=== PATIENT | male | born 1975 | race American Indian/Alaskan Native ===

== ENCOUNTER 2018-05-29 17:18 | Emergency (ER) | payer BC ==
[2018-05-29] MEDS ORDERED: Ketorolac 60 MG/2 ML SDV IM ONE (17:47)
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
--- NOTE | 2018-05-29 18:43 | CR ---
Indication: Pain. Technique: Two views of the right ankle were obtained. Comparison: None Findings: Irregularity of the distal fibula is identified, most likely chronic. The ankle mortise is intact. The talar dome is intact. Mild soft tissue swelling is identified laterally. No acute fracture or subluxation is identified. Impression: No acute fracture. Dictated by Rula Chong MD @ May 29 2018 6:40PM Signed by Dr. Rula Chong @ May 29 2018 6:41PM
== END 2018-05-29 19:00 | disposition home or self-care (01) ==
LOC: MW.ED 17:18
DX: S93.401A Sprain of unspecified ligament of right ankle, initial encounter (principal); F41.9 Anxiety disorder, unspecified; F32.9 Major depressive disorder, single episode, unspecified; E11.9 Type 2 diabetes mellitus without complications; Z87.891 Personal history of nicotine dependence; W10.9XXA Fall (on) (from) unspecified stairs and steps, initial encounter; Z88.5 Allergy status to narcotic agent
CPT/HCPCS: 73610; 96372; 99283; J1885

== ENCOUNTER 2018-09-10 07:06 | Emergency (ER) | payer BC ==
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
[2018-09-10] MEDS ORDERED: cefTRIAXone 1 GM Vial IM ONE (07:24)
[2018-09-10] MEDS ORDERED: Diphtheria,Pertussis(Acell),Tetanus Vaccine 0.5 ML Syringe IM ONE (07:24)
[2018-09-10] MEDS ORDERED: Lidocaine 1% 2 ML ONE (07:57)
--- NOTE | 2018-09-10 08:18 | CR ---
INDICATION: Rt knee pain x 3 days, pt fell. COMPARISON: 12/22/2013. FINDINGS: Three views of the right knee demonstrate normal mineralization and alignment. No acute fracture or dislocation. Large osseous spur along the medial femoral condyle consistent with prior MCL injury, unchanged from prior. Joint spaces are preserved. Mild osteophyte formation of the patellofemoral compartment. No significant joint effusion. IMPRESSION: No acute osseous abnormality. Dictated by Roshan Maier MD @ 09/10/2018 8:16:18 AM Dictated by: Roshan Maier MD @ 09/10/2018 08:16:27 (Electronically Signed)
[2018-09-10] MEDS ORDERED: Bacitracin Oint 1 GM U/D Packet TOP ONE (08:29)
== END 2018-09-10 08:44 | disposition home or self-care (01) ==
LOC: MW.ED 07:06
DX: S01.552A Open bite of oral cavity, initial encounter (principal); S80.211A Abrasion, right knee, initial encounter; E11.9 Type 2 diabetes mellitus without complications; Z23 Encounter for immunization; Z88.5 Allergy status to narcotic agent; W19.XXXA Unspecified fall, initial encounter
CPT/HCPCS: 73562; 90471; 90715; 96372; 99283; J0696; J2001

== ENCOUNTER 2020-10-18 10:24 | Emergency (ER) | payer BC, OTHER ==
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
[2020-10-18 11:15] LABS: BLOOD UREA NITROGEN,BUN 11 mg/dL (7.0-18.0); CARBON DIOXIDE,CO2 26.4 mmol/L (21.0-32.0); CHLORIDE,CL 100 mmol/L (98-107); GLUCOSE RANDOM 379 mg/dL (74-106); POTASSIUM,K 4.6 mmol/L (3.5-5.1); SODIUM,NA 135 mmol/L (136-148)
--- NOTE | 2020-10-18 12:09 | CR ---
Indication: Chest pain and intermittent dyspnea Technique: Portable AP chest radiograph Comparison: None available Findings: Normal heart and mediastinum. Lungs and pleural spaces clear. No acute or aggressive osseous abnormality. Impression: No acute findings in the chest. Dictated by Checo Ortega MD @ 10/18/2020 12:08:[address] Checo Ortega @ Oct 18 2020 12:08PM
== END 2020-10-18 12:37 | disposition home or self-care (01) ==
LOC: MW.ED 10:24
DX: J06.9 Acute upper respiratory infection, unspecified (principal); E11.9 Type 2 diabetes mellitus without complications
CPT/HCPCS: 36415; 71045; 71045-26; 80053; 82550; 83735; 84100; 84484; 85025; 93005; 99284-25

== ENCOUNTER 2021-02-20 16:59 | Emergency (ER) | payer OTHER ==
[2021-02-20 18:26] LABS: CORONAVIRUS COVID-19 NAA POSITIVE (NEGATIVE); INFLUENZA A NAA NEGATIVE (NEGATIVE); INFLUENZA B NAA NEGATIVE (NEGATIVE)
--- NOTE | 2021-02-20 19:45 | EDM.PDOC ---
ED HPI GENERAL MEDICAL PROBLEM - General Chief Complaint: Respiratory Problem Stated Complaint: COVID POS, COVID SYMPTOMS Time Seen by Provider: 02/20/21 19:13 - History of Present Illness INITIAL COMMENTS - FREE TEXT/NARRATIVE: HISTORY AND PHYSICAL: History of present illness: Is a 45-year-old gentleman with history significant for diabetes who presents ER today secondary to a positive Covid test at home along with generalized malaise, body aches and start developing some shortness of breath. Patient denies any recent vomiting or diarrhea. Patient reports even tolerate p.o. solids and liquids well. Patient has a chest pain or abdominal pain. Patient reports occasional cough. Patient denies any loss of taste. Patient denies any recent fevers. Patient has a history of hypertension, liver, lung, kidney problems. Patient has any tobacco, alcohol, drugs. Patient reports he has allergies to morphine. Review of systems: As per history of present illness and below otherwise all systems reviewed and negative. Past medical history: As per history of present illness and as reviewed below otherwise noncontributory. Surgical history: As per history of present illness and as reviewed below otherwise noncontr ibutory. Social history: No reported history of drug abuse. Family history: As per history of present illness and as reviewed below otherwise noncontributory. Physical exam: HEENT: Atraumatic, normocephalic, pupils reactive, negative for conjunctival pallor or scleral icterus, mucous membranes moist, throat clear, neck supple, nontender, trachea midline. Lungs: Clear to auscultation, breath sounds equal bilaterally, chest nontender. Heart: S1S2, regular, negative for clicks, rubs, or JVD. Abdomen: Soft, nondistended, nontender. Negative for masses or hepatosplenomegaly. Negative for costovertebral tenderness. Pelvis: Stable nontender. Genitourinary: Deferred. Rectal: Deferred. Extremities: Atraumatic, negative for cords or calf pain. Neurovascular unremarkable. Neuro: Awake, alert, oriented. Cranial nerves II through XII unremarkable. Cerebellum unremarkable. Motor and sensory unremarkable throughout. Exam nonfocal. Diagnostics: Covid test positive Therapeutics: I had a detailed discussion with the patient regarding the capability of the infusion center to provided monoclonal antibodies treatment against COVID-19. The potential benefits of this intervention as well as the potential risks and side effects were discussed at length. Questions were sought and answered, and the patient was given handout to review additional information. In addition, a link to the informational website has been provided. I have encouraged the patient to search for additional information about this intervention by reading information at various internet resources. Patient is aware that they are free to change their mind at any time regarding this treatment. At this time, the patient does not want their information to be sent to the infusion center. Assessment and plan: 45-year-old gentleman who presents ER today after being testing positive at home for Covid. Patient's pulse ox is 98% on room air. Patient's lungs are clear. Patient appears to be no acute distress. Patient has been given the opportunity to obtain Regeneron however at this time he is declining it. He has been encouraged to return the ED if he should change his mind or to call his primary care physician to set up Regeneron therapy for him. I have discussed with him risks of Covid and the need to return to the ED if they should have increased chest pain or shortness of breath. They should also return the ED if they develop any new or concerning symptoms. Definitive disposition and diagnosis as appropriate pending reevaluation and review of above. Generalized body aches Pain Score (Numeric/FACES): 4 - Related Data Allergies Allergy/AdvReac Type Severity Reaction Status Date / Time morphine Allergy Itching Verified 02/20/21 17:40 Home Meds: Home Meds Empagliflozin [Jardiance] 02/20/21 [History] Semaglutide [Ozempic] 02/20/21 [History] Past Medical History HEENT History: Reports: None Cardiovascular History: Reports: None Respiratory History: Reports: None Gastrointestinal History: Reports: None Genitourinary History: Reports: None Musculoskeletal History: Reports: Fracture Psychiatric History: Reports: Anxiety, Depression Endocrine/Metabolic History: Reports: Diabetes, Type II Hematologic History: Reports: None Oncologic (Cancer) History: Reports: None - Infectious Disease History Infectious Disease History: Reports: Chicken Pox - Past Surgical History HEENT Surgical History: Reports: None Musculoskeletal Surgical History: Reports: Other (See Below) Other Musculoskeletal Surgeries/Procedures:: crushed by front end melter loader 13 years ago- pelvis sx Dermatological Surgical History: Reports: Skin Graft Social & Family History - Family History Family Medical History: No Pertinent Family History - Caffeine Use Caffeine Use: Reports: Coffee, Energy Drinks - Recreational Drug Use Recreational Drug Use: No ED ROS GENERAL - Review of Systems Review Of Systems: See Below ED EXAM, GENERAL - Physical Exam Exam: See Below Course - Vital Signs Last Recorded V/S: Last Vital Signs Temp 99 F 02/20/21 17:41 Pulse 91 02/20/21 17:41 Resp 18 02/20/21 17:41 BP 121/74 02/20/21 17:41 Pulse Ox 97 02/20/21 17:41 - Orders/Labs/Meds Labs: Laboratory Tests 02/20/21 Range/Units 17:38 Influenza Type A RNA NEGATIVE (NEGATIVE) Influenza Type B RNA NEGATIVE (NEGATIVE) SARS-CoV-2 RNA (RAAD) POSITIVE H (NEGATIVE) Departure - Departure Time of Disposition: 19:44 Disposition: Home, Self-Care 01 Condition: Good Clinical Impression: COVID-19 virus infection - Discharge Information Instructions: 10 Things You Can Do to Manage Your COVID-19 Symptoms at Home - [facility] (09/05/2020), COVID-19: Quarantine vs. Isolation - [facility] (02/07/2020) Additional Instructions: You were seen and evaluated in ER today secondary to a positive Covid test. At this time, your oxygen level looks excellent and your lung exam was normal. Please return the ED if you start developing any shortness of breath or any new or concerning symptoms. At this time, you do not meet criteria for inpatient level care for treatment of coronavirus. As we have discussed, please talk to your doctor or return to the ER if you change your mind about wanting Regeneron therapy. You have been provided information sheet about Regeneron. 1. Your COVID-19 screening is positive. That means you do have the coronavirus and you are considered contagious. Your vital signs and oxygen saturation are well enough that you were able to monitor your symptoms at home. Continue to monitor for trouble breathing, new confusion or inability to arouse, bluish lips or face or any of the other symptoms we discussed -if this occurs please return to the emergency room. 2. Please self quarantine over the next 10 days. Inform any persons that you have been in contact with since you started becoming symptomatic that you have tested positive; they should be made aware and take the appropriate steps as needed. 3. You can take NyQuil during the evening to help get a restful night sleep. May alternate Tylenol and ibuprofen as needed for pain and fever management. 4. The [facility] will be calling you and following up with you. The [facility] Hotline phone number , They are open Tuesday - Tuesday 7am - 7pm. Follow up with your primary care provider for re-evaluation and re-testing after the 10 day quarantine and discuss when you should be seen. The following information is given to patients seen in the emergency department who are being discharged to home. This information is to outline your options for follow-up care. We provide all patients seen in our emergency department with a follow-up referral. The need for follow-up, as well as the timing and circumstances, are variable depending upon the specifics of your emergency department visit. If you don't have a primary care physician on staff, we will provide you with a referral. We always advise you to contact your personal physician following an emergency department visit to inform them of the circumstance of the visit and for follow-up with them and/or the need for any referrals to a consulting specialist. The emergency department will also refer you to a specialist when appropriate. This referral assures that you have the opportunity for follow-up care with a specialist. All of these measure are taken in an effort to provide you with optimal care, which includes your follow-up. Under all circumstances we always encourage you to contact your private physician who remains a resource for coordinating your care. When calling for follow-up care, please make the office aware that this follow-up is from your recent emergency room visit. If for any reason you are refused follow-up, please contact the [facility] Department at and asked to speak to the emergency department charge nurse. [facility] [address] [place] [id number] [facility] [address] [place] [address] Sepsis Event Note (ED) - Evaluation Sepsis Screening Result: No Definite Risk - Focused Exam Vital Signs: Vital Signs Temp Pulse Resp BP Pulse Ox 12/31/21 17:41 99 F 91 18 121/74 97
== END 2021-02-20 20:06 | disposition home or self-care (01) ==
LOC: MW.ED 16:59
DX: U07.1 COVID-19 (principal); E11.9 Type 2 diabetes mellitus without complications; Z79.84 Long term (current) use of oral hypoglycemic drugs; Z79.899 Other long term (current) drug therapy; Z88.5 Allergy status to narcotic agent
CPT/HCPCS: 0240U; 99283